=== PATIENT | male | born 1935 | race Caucasian/White ===

== ENCOUNTER 2017-10-05 10:49 | Outpatient (CLI) | payer MEDICARE | END 2017-10-05 10:50 | disposition home or self-care (01) | LOC: BICCT 10:49 | PROVIDERS: ATTEND Internal Medicine Cardiovascular Disease | DX: I71.2 Thoracic aortic aneurysm, without rupture (principal); I25.118 Atherosclerotic heart disease of native coronary artery with other forms of angina pectoris; I48.2 Chronic atrial fibrillation; R91.8 Other nonspecific abnormal finding of lung field | CPT/HCPCS: 71250; 82565 ==

== ENCOUNTER 2017-12-29 12:53 | Inpatient (IN) | payer MEDICARE ==
[2017-12-29 13:41] LABS: #Eosinphils 0.1 thou/uL (0.0-0.7); #Lymphocytes 1.2 thou/uL (1.20-3.40); #Monocytes 0.7 thou/uL (0.11-0.59); #Neutrophils 13.1 thou/uL (1.40-6.50); %Basophils 0.1 % (0.0-1.0); %Eosinophils 0.7 % (0.0-10.0); %Lymphocytes 8.1 % (21.0-51.0); %Monocytes 4.5 % (0.0-10.0); %Neutrophils 86.7 % (42.0-75.0); Hemoglobin 10.9 g/dL (14.0-18.0); Mean Corpuscular HGB CONC 32.6 g/dL (32.0-36.0); Mean Corpuscular Hemoglobin 31.8 pg (27.0-31.0); Mean Corpuscular Volume 97.3 fL (78.0-98.0); Platelet Count 239 thou/uL (130-400); RBC Distribution Width 12.1 % (11.5-14.5); Red Blood Cell (RBC) Count 3.44 mill/uL (4.70-6.10); White Blood Cell (WBC) Count 15.2 thou/uL (4.8-10.8)
[2017-12-29] MEDS ORDERED: cefTRIAXone\\ROCEPHIN 1 GM VIAL ONE ×2 (13:54→14:44)
[2017-12-29] MEDS ORDERED: Acetaminophen 500 MG TAB ONE (13:54)
[2017-12-29 14:02] LABS: ALT (SGPT) 11 U/L (8-55); AST (SGOT) 11 U/L (5-34); Albumin 3.3 g/dL (3.4-4.8); Alkaline Phosphatase 77 U/L (40-150); Anion Gap 15 mmol/L (10-20); BUN (Urea Nitrogen) 33 mg/dL (8.4-25.7); Bilirubin, Total 1.6 mg/dL (0.2-1.2); CK (CPK) 29 U/L (30-200); Calc. Creatinine Clearance 0 mL/min (70-130); Calcium 8.9 mg/dL (7.8-10.44); Carbon Dioxide 23 mmol/L (23-31); Chloride 101 mmol/L (98-107); Estimated GFR-MDRD 36; Globulin 3.5 g/dL (2.4-3.5); Glucose 113 mg/dL (83-110); Potassium 4.8 mmol/L (3.5-5.1); Protein, Total 6.8 g/dL (5.8-8.1); Sodium 134 mmol/L (136-145)
[2017-12-29 14:07] LABS: CKMB 0.4 ng/mL (0-6.6); Troponin I Less than 0.010 ng/mL (< 0.028)
--- NOTE | 2017-12-29 14:14 | RAD ---
CHEST 1 VIEW: Date: 12/29/17 HISTORY: Cough and difficulty breathing. COMPARISON: None. FINDINGS: Evaluation is limited by portable technique. Heart appears to be enlarged and there is atherosclerosi s of the aorta. Questionable pleural and parenchymal changes in the left lung base. There appear to b e multiple pleural based calcifications in the left and right hemithorax. Correlate for previous asbe stos exposure. There is no evidence of pneumothorax or osseous abnormalities. IMPRESSION: 1. Cardiomegaly. 2. Questionable pleural and parenchymal changes left lung base. Better interrogation with a 2 view c hest radiograph is recommended. 3. Multiple pleural based calcifications are suspected. Correlate for previous asbestos exposure. POS: PPP
[2017-12-29 14:30] LABS: Bilirubin Negative (Negative); Blood, Urine Large (Negative); Clarity TURBID (Clear); Glucose, Urine (Dipstick) Negative (Negative); Leukocyte Large (Negative); Nitrite Positive (Negative); Protein, Urine (Dipstick) 100 mg/dL (Neg-Trace); Urobilinogen 0.2 mg/dL (0.2-1.0); pH, Urine 5.5 (5.0-9.0)
[2017-12-29 14:35] LABS: Bacteria/HPF Rare-Few HPF (None Seen); Hyaline Casts/LPF 4-6 HYALINE CAST LPF (0-3 Hyaline); Pathc Cast-AUWi Flag 1.72 (0-2.49); Squamous Epithelial 0-3 HPF (0-3)
[2017-12-29 14:36] LABS: Yeast-AUWi Flag 778.8 (0-25.0)
[2017-12-29 14:43] LABS: RBC/HPF 21-50 HPF (0-3); Yeast-All Forms None Seen HPF (None Seen)
--- NOTE | 2017-12-29 16:46 | HP ---
DATE OF ADMISSION: 12/29/2017 CHIEF COMPLAINT: Altered mental status. HISTORY OF PRESENT ILLNESS: This patient is an 82-year-old male with a history of coronary artery di sease, COPD and hypertension who has been living in [place], but recently moved to [place] to be near family. The patient's son and [id number] are with him. He lives on their property in an adjac ent home. They report that the patient has been in good health until about a week ago when he starte d experiencing some urinary incontinence. Subsequently, the patient was noted this morning to have s ome altered mental status starting soon after he awoke. He was noted to be tachycardic when they att empted to check some blood pressure on him with their blood pressure cuff. They called their PCP, jessica franks is Dr. Cruz and he recommended calling an ambulance and bringing the patient to the hospital. They also noted that the patient was extremely pale when they initially noted to him, but that seems to be improved. REVIEW OF SYSTEMS: Through a 10-system review appears to be negative other than the above mentioned incontinence. They do note that the patient has lost a significant amount of weight over the last ye ar, which has been deliberate. At one point, he was up to 400 pounds. PAST MEDICAL HISTORY: Notable for coronary artery disease with 4 stents. He has an aortic aneurysm, which is followed by Dr. Tarango and appears to be stable over the past year, COPD and hypertensio n. The patient has a history of atrial fibrillation. PAST SURGICAL HISTORY: Bilateral total knee joint replacements and cholecystectomy. The patient rep orts he has an IVC filter. He denies ever having had a blood clot and states he was told he was at h igh risk at one point. FAMILY HISTORY: The patient's mother at 87. Father at 52 of some type of colon rupture. SOCIAL HISTORY: The patient has a remote history of smoking, quit around 1989. No alcohol. He is w idowed. He is a full code and his son be his surrogate decision maker. ALLERGIES: ADHESIVE TAPE. MEDICATIONS: Tamsulosin 0.4 mg 1 p.o. daily, simvastatin 40 mg at bedtime, carvedilol 6.25 mg b.i.d. , pantoprazole 40 mg daily, alprazolam 0.5 mg p.o. b.i.d., losartan 50 mg p.o. daily, aspirin 81 mg d aily, Eliquis 2.5 mg daily, torsemide 20 mg daily, famotidine 20 mg p.o. b.i.d. PHYSICAL EXAMINATION: VITAL SIGNS: Initially, BP is 133/90, heart rate 120, O2 sat 98% on 2 liters, respirations were 22. GENERAL APPEARANCE: Age-appropriate male. He is moderately obese, in no distress. He is awake and alert. He is not fully oriented, but fairly coherent and cooperative. HEENT: PERRL. He is edentulous. No OP lesions. NECK: Supple and symmetric. CARDIOVASCULAR: Faint, irregular with no murmurs. LUNGS: Clear to auscultation bilaterally with good chest wall expansion and air exchange. ABDOMEN: Soft, nontender, nondistended. Positive bowel sounds. No masses, no organomegaly. EXTREMITIES: Reveal chronic stasis dermatitis of the lower extremities with 1+ pretibial pitting becki ma bilaterally. LABORATORY DATA: White count 15.2, hemoglobin 10.9, platelets 239,000. Sodium 134, potassium 4.8, c hloride 101, CO2 23, BUN 33, creatinine 1.80, glucose 113, lactic acid 1.5, total bilirubin 1.6, AST is 11, ALT is 11. CK 29. BNP 695. Albumin 3.3. Urinalysis shows large blood, positive nitrites, l arge leukocyte esterase, 21-50 red cells, too numerous to count white cells. IMAGING: Chest x-ray shows chronic changes of the pleura of the bases. Lungs appear to be stable co mpared to a CT done in September per my read. Monitor revealing atrial fibrillation with rapid ventricula r response. ASSESSMENT AND PLAN: 1. Urinary tract infection. The patient has had vancomycin and Rocephin in the Emergency Department . We will continue with this. 2. Altered mental status, likely metabolic encephalopathy secondary to the urinary tract infection. 3. Atrial fibrillation with rapid ventricular response. The patient is on anticoagulation. His tac hycardia is probably appropriate to the situation with the urinary tract infection. Therefore, I do not believe we need to be overly aggressive in rate control. After I saw the patient, the ER physici an ordered IV Cardizem with a 20 mg bolus to be given after he had fluid resuscitation. Even with th e fluid, the blood pressure dropped into the 90s; however, his heart rate was in 80s. We will contin ue to monitor that and only place him on a drip if it becomes necessary. 4. History of coronary artery disease, stable. Continue with his usual home medications. 5. History of chronic venous stasis of the lower extremities. We will continue with his diuretics o nly after he is more stabilized.
[2017-12-29 17:06] VITALS: BMI 39.2
[2017-12-29] MEDS: Sodium Chloride 0.9% 1,000 ML IV SCH (21:07)
[2017-12-30] MEDS: Sodium Chloride 0.9% 1,000 ML IV SCH (03:37)
[2017-12-30 04:35] LABS: #Lymphocytes 0.8 thou/uL (1.20-3.40); #Monocytes 0.3 thou/uL (0.11-0.59); #Neutrophils 15.3 thou/uL (1.40-6.50); %Eosinophils 0.2 % (0.0-10.0); %Monocytes 1.6 % (0.0-10.0); %Neutrophils 93.2 % (42.0-75.0); Hemoglobin 10.4 g/dL (14.0-18.0); Mean Corpuscular HGB CONC 33.2 g/dL (32.0-36.0); Mean Corpuscular Hemoglobin 32.3 pg (27.0-31.0); Mean Corpuscular Volume 97.4 fL (78.0-98.0); Mean Platelet Volume 8.6 fL (7.4-10.4); Platelet Count 190 thou/uL (130-400); RBC Distribution Width 12.1 % (11.5-14.5); Red Blood Cell (RBC) Count 3.21 mill/uL (4.70-6.10); White Blood Cell (WBC) Count 16.4 thou/uL (4.8-10.8)
[2017-12-30 04:55] LABS: Anion Gap 13 mmol/L (10-20); BUN (Urea Nitrogen) 28 mg/dL (8.4-25.7); Calc. Creatinine Clearance 65 mL/min (70-130); Carbon Dioxide 21 mmol/L (23-31); Chloride 107 mmol/L (98-107); Estimated GFR-MDRD 45; Glucose 177 mg/dL (83-110); Potassium 4.4 mmol/L (3.5-5.1); Sodium 137 mmol/L (136-145)
[2017-12-30] MEDS ORDERED: HYDROcodone/Acetaminophen 10/325 mg Tablet PO PRN (08:44)
[2017-12-30] MEDS ORDERED: Losartan 25 MG TAB PO SCH ×2 (09:30→10:00)
[2017-12-30] MEDS: Apixaban 2.5 MG TAB PO SCH ×2 (09:44→20:33)
[2017-12-30] MEDS: Carvedilol 6.25 MG TAB PO SCH ×2 (09:44→20:32)
[2017-12-30] MEDS: Tamsulosin HCl 0.4 MG CAP PO SCH (09:44)
[2017-12-30] MEDS: Aspirin 81 mg Enteric Coated Tablet PO SCH (09:45)
[2017-12-30] MEDS: ALPRAZolam 0.5 MG TAB PO SCH ×2 (09:45→20:32)
[2017-12-30] MEDS: cefTRIAXone\\ROCEPHIN 1 GM in Sodium Chloride 0.9% 100 ML IVPB SCH (13:51)
--- NOTE | 2017-12-30 14:16 | CON ---
DATE OF CONSULTATION: 12/30/2017 SERVICE: Pulmonary Medicine. REASON FOR CONSULTATION: ICU patient. HISTORY OF PRESENT ILLNESS: The patient is an 82-year-old white male with past medical history significant for asbestos-related lung disease, possible COPD, and obstructive sleep apnea. He has been off of the CPAP for about a year now. He presented to the hospital with a 2-day history of increasing shortness of breath and 1-day history of altered mental status. He was discovered to be in atrial fibrillation with rapid ventricular response. He was placed in the ICU after rate control medications were initiated. He subsequently converted back into a normal rhythm. He was discovered to have a urinary tract infection. He was given some antibiotics and IV fluids overnight. His mentation has improved to baseline based on patient's son's recollection. He currently denies any fevers or chills. He does not have any difficulty breathing, cough, sputum production, shortness of breath, nausea, vomiting, chest discomfort, or palpitations. Otherwise, he is in his usual state of health and has no specific complaints. PAST MEDICAL HISTORY: 1. Coronary artery disease. 2. Hypertension. 3. Dyslipidemia. 4. Chronic obstructive pulmonary disease. 5. Asbestos-related lung disease. 6. Paroxysmal atrial fibrillation. 7. Obstructive sleep apnea. PAST SURGICAL HISTORY: 1. Bilateral total knee replacement. 2. Cholecystectomy. 3. IVC filter placement. FAMILY HISTORY: Noncontributory. SOCIAL HISTORY: He has a remote history of smoking. 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 He denies any alcohol or illicit drug use. He does have exposure to asbestos in his work in the [employer]. He has no exposure to chemicals, dust, tuberculosis, otherwise. ALLERGIES: TAPE. MEDICATIONS: List of his inpatient medications were reviewed and modified. REVIEW OF SYSTEMS: General, head, ears, eyes, nose, throat, cardiovascular, respiratory, GI, , musculoskeletal, neurologic, and skin is negative except as mentioned in the HPI. PHYSICAL EXAMINATION: VITAL SIGNS: Afebrile, pulse 67, blood pressure 127/72, respirations 20, saturation 99% on room air. GENERAL: The patient is awake, alert, in no apparent distress. LUNGS: Excellent air entry. I really do not appreciate a prolonged expiratory phase, but extensive crackles are present in bibasilar regions. HEART: Normal rate, regular. ABDOMEN: Soft, nontender, nondistended. Bowel sounds are positive. MUSCULOSKELETAL: No cyanosis or clubbing. Stasis changes are present in the bilateral lower extremities. He has 1+ edema in the bilateral lower extremities , which is roughly symmetric. NEUROLOGIC: Grossly nonfocal. LABORATORY DATA: WBC 16.4, hemoglobin 10.4, platelets 190,000. Creatinine 1.48. BUN 28. Basic metabolic profile is, otherwise, unremarkable. BNP 694, which is a historical high. Liver function studies are unremarkable. Cardiac enzymes are negative x1. WBC is greater than 50 with positive nitrites and leukocyte esterase. Urine culture is growing a gram-negative boris. Blood cultures are negative x2. IMAGING: Chest x-ray demonstrates bilateral pleural plaques and bilateral pleural parenchymal changes consistent with possible volume overload. There is likely left-sided pleural effusion. Cardiomegaly is present. ASSESSMENT: 1. Acute hypoxic respiratory failure, resolved. 2. Urinary tract infection secondary to gram-negative boris. 3. Atrial fibrillation with rapid ventricular response, returned to sinus rhythm. 4. Obstructive sleep apnea. 5. Asbestos-related lung disease, well established DISCUSSION AND PLAN: The patient has cleared his infectious profile. His blood pressures have firmed up very nicely. We will restart a dose of Lasix to be delivered on a daily basis until he returns to euvolemia. I agree with our empiric antibiotic covering gram-negative urinary tract infection species. IV fluids will be discontinued in their entirety and we will transition the patient to the telemetry unit. Once he gets out of the hospital, I would like for him to follow up with a lung doctor to clarify his underlying lung disease, determine whether or not COPD is a feature as he has previously been diagnosed with this, and also to get him back on noninvasive positive pressure ventilation for his known obstructive sleep apnea (he was on therapy for 10 years, but abandoned it roughly 1 year ago). 70 minutes have been devoted to this patient in various activities. I personally reviewed all imaging studies and laboratory data noted within this document. For fifty percent of this time, I was interacting with the patient at the bedside or coordinating care with the care team. For the remainder of the time I was immediately available to the patient in the hospital unit. ELVER
--- NOTE | 2017-12-30 14:49 | PDOC.PN ---
- Subjective Encounter Start Date: 12/30/17 Encounter Start Time: 08:30 Doing much better. No complaints today. - Objective Resuscitation Status: Resuscitation Status FULL:Full Resuscitation MAR Reviewed: Yes Vital Signs & Weight: Vital Signs (12 hours) Temp Pulse Resp BP BP Pulse Ox 12/30/17 12:00 97.2 F L 87 20 131/79 96 12/30/17 09:44 127/72 12/30/17 07:54 99 12/30/17 07:35 97.6 F 67 20 120/84 99 12/30/17 03:00 97.6 F 75 20 107/72 97 Weight Weight 277 lb 6 oz I&O: 12/29/17 12/30/17 12/31/17 06:59 06:59 06:59 Intake Total 2250 Output Total 800 Balance 1450 Result Diagrams: 12/30/17 03:44 12/30/17 03:44 Phys Exam - Physical Examination Constitutional: NAD Respiratory: no wheezing, no rales, no rhonchi, clear to auscultation bilateral Cardiovascular: RRR, no significant murmur, no rub Gastrointestinal: soft, non-tender, no distention, positive bowel sounds 1+ edema BLE's Neurological: non-focal Psychiatric: normal affect Dx/Plan (1) Sepsis Code(s): A41.9 - SEPSIS, UNSPECIFIED ORGANISM Status: Acute Comment: Improved. (2) UTI (urinary tract infection) Status: Acute Comment: GNR on cx. Continue with broad abx coverage until results of cx complete. Vanc discontinued in light of GNR. (3) Altered mental status Code(s): R41.82 - ALTERED MENTAL STATUS, UNSPECIFIED Status: Acute Comment: Metabolic encephalopathy secondary to sepsis/uti. Improved. At baseline. (4) Atrial fibrillation with RVR Code(s): I48.91 - UNSPECIFIED ATRIAL FIBRILLATION Status: Acute Comment: Rate controlled. Continue with anticoagulation. (5) CAD (coronary artery disease) Code(s): I25.10 - ATHSCL HEART DISEASE OF [place] CORONARY ARTERY W/O ANG PCTRS Status: Acute (6) Venous stasis Code(s): I87.8 - OTHER SPECIFIED DISORDERS OF VEINS Status: Acute Comment: Chronic. He reports a history of an IVC filter. 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 - Plan * Can move to tele floor.
[2017-12-30] MEDS: Simvastatin 40 MG TAB PO SCH (20:32)
[2017-12-30] MEDS: Torsemide 20 MG TAB PO SCH (20:33)
[2017-12-31 04:17] LABS: Anion Gap 15 mmol/L (10-20); BUN (Urea Nitrogen) 32 mg/dL (8.4-25.7); Calc. Creatinine Clearance 75 mL/min (70-130); Calcium 8.1 mg/dL (7.8-10.44); Carbon Dioxide 19 mmol/L (23-31); Chloride 107 mmol/L (98-107); Estimated GFR-MDRD 53; Glucose 131 mg/dL (83-110); Potassium 4.7 mmol/L (3.5-5.1); Sodium 136 mmol/L (136-145)
[2017-12-31 04:48] LABS: Band 3 % (5-11); Hemoglobin 10.6 g/dL (14.0-18.0); Lymphocytes 6 % (21-51); MDiff Complete? YES; Mean Corpuscular HGB CONC 32.4 g/dL (32.0-36.0); Mean Corpuscular Hemoglobin 31.5 pg (27.0-31.0); Mean Corpuscular Volume 97.2 fL (78.0-98.0); Mean Platelet Volume 8.4 fL (7.4-10.4); Monocytes 1 % (0-10); Neutrophil 90 % (42-75); Platelet Count 194 thou/uL (130-400); RBC Distribution Width 12.2 % (11.5-14.5); Red Blood Cell (RBC) Count 3.37 mill/uL (4.70-6.10); White Blood Cell (WBC) Count 18.4 thou/uL (4.8-10.8)
--- NOTE | 2017-12-31 08:36 | PRG ---
DATE OF SERVICE: 12/31/2017 SERVICE: Pulmonary Medicine INTERVAL HISTORY: The patient is doing great from a respiratory standpoint. He is breathing comfortably. He is also resting very well. I woke him up and he was appropriate. He is in no apparent distress. He denies any current chest pain, nausea, vomiting, fevers or chills. PHYSICAL EXAMINATION: VITAL SIGNS: Afebrile, pulse 93, blood pressure 128/77, respirations 18, saturation 98% on room air. GENERAL: The patient is awake, alert, in no apparent distress. LUNGS: Decent air entry. Minimal dependent crackles are present. I do not appreciate a prolonged expiratory phase or wheezing. HEART: Normal rate, regular. ABDOMEN: Soft, nontender, nondistended. Bowel sounds are positive. MUSCULOSKELETAL: No cyanosis or clubbing. There is no pitting in the bilateral lower extremities currently. LABORATORY DATA: WBC 18.4, hemoglobin 10.6, platelets 194,000. Neutrophil count is 90% on top of 3% bands. Creatinine has down trended to 1.30. BUN 32. Basic metabolic profile is otherwise unremarkable. Urinalysis is positive for significant pyuria. E. coli is growing in the urine, which is a pansensitive organism. Blood cultures x2 remain negative to date. ASSESSMENT: 1. Acute hypoxic respiratory failure, resolved. 2. Urinary tract infection secondary to gram negative boris. 3. Severe sepsis, improving. 4. Atrial fibrillation with rapid ventricular response, returned to sinus rhythm. 5. Asbestos related lung disease, well-established. 6. Obstructive sleep apnea. DISCUSSION, AND PLAN: We will increase our mobilization efforts. I will get him into a chair and have physical therapy work with him. He is more hemodynamically stable. As of this point, he can be considered for transition to the telemetry unit. Pulmonary Critical Care will continue to follow along while patient remains in house for now. He will need at least an additional 24 hours in the hospital before being considered for discharge. ELVER
[2017-12-31] MEDS: Carvedilol 6.25 MG TAB PO SCH ×2 (09:32→20:36)
[2017-12-31] MEDS: Aspirin 81 mg Enteric Coated Tablet PO SCH (09:32)
[2017-12-31] MEDS: Losartan 25 MG TAB PO SCH (09:32)
[2017-12-31] MEDS: ALPRAZolam 0.5 MG TAB PO SCH ×2 (09:33→20:36)
[2017-12-31] MEDS: Apixaban 2.5 MG TAB PO SCH ×2 (09:33→20:36)
[2017-12-31] MEDS: Tamsulosin HCl 0.4 MG CAP PO SCH (09:34)
[2017-12-31] MEDS: Torsemide 20 MG TAB PO SCH ×2 (09:34→20:36)
--- NOTE | 2017-12-31 09:59 | PDOC.PN ---
- Subjective Encounter Start Date: 12/31/17 Encounter Start Time: 09:57 Doing great. Much better after getting the Omer out. - Objective Resuscitation Status: Resuscitation Status FULL:Full Resuscitation Vital Signs & Weight: Vital Signs (12 hours) Temp Pulse Resp BP BP Pulse Ox 12/31/17 09:32 131/86 12/31/17 08:00 98 12/31/17 07:39 97.0 F L 93 18 128/77 98 12/31/17 03:40 97.6 F 20 123/78 98 12/31/17 00:00 95 18 123/73 99 Weight Weight 277 lb 6 oz I&O: 12/30/17 12/31/17 01/01/18 06:59 06:59 06:59 Intake Total 2250 410 Output Total 800 1050 Balance 1450 -640 Result Diagrams: 12/31/17 03:45 12/31/17 03:45 Phys Exam - Physical Examination Constitutional: NAD Respiratory: no wheezing, no rales, no rhonchi Cardiovascular: RRR, no significant murmur, no rub Gastrointestinal: soft, non-tender, no distention, positive bowel sounds Musculoskeletal: no edema Psychiatric: normal affect Dx/Plan (1) Sepsis Code(s): A41.9 - SEPSIS, UNSPECIFIED ORGANISM Status: Acute Comment: Improved. (2) UTI (urinary tract infection) Status: Acute Comment: E. coli. Very sensitive. Continue with broad abx coverage until results of cx complete. Vanc discontinued in light of GNR. (3) Altered mental status Code(s): R41.82 - ALTERED MENTAL STATUS, UNSPECIFIED Status: Acute Comment: Metabolic encephalopathy secondary to sepsis/uti. Improved. At baseline. (4) Atrial fibrillation with RVR Code(s): I48.91 - UNSPECIFIED ATRIAL FIBRILLATION Status: Acute Comment: Rate controlled. Continue with anticoagulation. (5) CAD (coronary artery disease) Code(s): I25.10 - ATHSCL HEART DISEASE OF [place] CORONARY ARTERY W/O ANG PCTRS Status: Acute (6) Venous stasis Code(s): I87.8 - OTHER SPECIFIED DISORDERS OF VEINS Status: Acute Comment: Chronic. He reports a history of an IVC filter. 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 - Plan * Ambulate. * Monitor voiding post removal of the Omer. * Move to Tele.
[2017-12-31] MEDS: cefTRIAXone\\ROCEPHIN 1 GM in Sodium Chloride 0.9% 100 ML IVPB SCH (13:49)
--- NOTE | 2017-12-31 13:57 | PQF ---
DATE: 12-31-17 ATTN : DR. DELFIN ZABALA Please exercise your independent, professional judgment in responding to the clarification form. Clinical indicators are provided on the bottom of this form for your review Please check appropriate box(es): [ x] Sepsis due to: ( UTI, etc.) [ ] Severe sepsis with acute organ dysfunction of: (Examples: respiratory failure, encephalopathy, other) [ ] Other diagnosis [ ] Unable to determine In addition, please specify: Present on Admission (POA): [ x] Yes [ ] No [ ] Unable to determine For continuity of documentation, please document condition throughout progress notes and discharge summary. Thank You. CLINICAL INDICATORS - SIGNS / SYMPTOMS / LABS ER: CONFUSION, FEVER, HX OF UTI'S H&P: AMS, LIKELY METABOLIC ENCEPHALOPATHY 2/[address] ZABALA 12-30-17: ACUTE SEPSIS IMPROVED CONSULT NOTE DR. BARLOW 12-31-17: SEVERE SEPSIS, IMPROVING TEMP: ER: 102.3, 102.4 BP: ER: 99/71, 96/52 PULSE: ER: 133, 120, 113 WBC: 12-29-17: 15.2 12-30-17: 16.4 12-31-17: 18.4 RISK FACTORS: H&P: AMS, LIKELY METABOLIC ENCEPHALOPATHY 2/2 UTI TREATMENTS: MAR: 12-30-17: ROCEPHIN IV, IVF (This form is maintained as a part of the permanent medical record) 2014 [employer] All Rights Reserved MTDD
[2017-12-31] MEDS: Simvastatin 40 MG TAB PO SCH (20:36)
[2018-01-01 05:03] LABS: #Basophils 0.1 thou/uL (0.0-0.2); #Eosinphils 0.5 thou/uL (0.0-0.7); #Monocytes 0.7 thou/uL (0.11-0.59); #Neutrophils 10.1 thou/uL (1.40-6.50); %Basophils 0.4 % (0.0-1.0); %Eosinophils 4.2 % (0.0-10.0); %Lymphocytes 8.1 % (21.0-51.0); %Monocytes 5.7 % (0.0-10.0); %Neutrophils 81.6 % (42.0-75.0); Mean Corpuscular HGB CONC 31.8 g/dL (32.0-36.0); Mean Corpuscular Volume 97.7 fL (78.0-98.0); Platelet Count 207 thou/uL (130-400); RBC Distribution Width 12.2 % (11.5-14.5); Red Blood Cell (RBC) Count 3.56 mill/uL (4.70-6.10); White Blood Cell (WBC) Count 12.4 thou/uL (4.8-10.8)
[2018-01-01 05:22] LABS: Anion Gap 14 mmol/L (10-20); BUN (Urea Nitrogen) 33 mg/dL (8.4-25.7); Calc. Creatinine Clearance 68 mL/min (70-130); Calcium 8.3 mg/dL (7.8-10.44); Carbon Dioxide 26 mmol/L (23-31); Chloride 102 mmol/L (98-107); Estimated GFR-MDRD 47; Glucose 98 mg/dL (83-110); Sodium 138 mmol/L (136-145)
[2018-01-01] MEDS: Losartan 25 MG TAB PO SCH (08:29)
[2018-01-01] MEDS: Tamsulosin HCl 0.4 MG CAP PO SCH ×2 (08:29→20:34)
[2018-01-01] MEDS: Torsemide 20 MG TAB PO SCH ×2 (08:29→20:34)
[2018-01-01] MEDS: Carvedilol 6.25 MG TAB PO SCH ×2 (08:29→20:33)
[2018-01-01] MEDS: ALPRAZolam 0.5 MG TAB PO SCH ×2 (08:29→20:33)
[2018-01-01] MEDS: Apixaban 2.5 MG TAB PO SCH ×2 (08:29→20:33)
[2018-01-01] MEDS: Aspirin 81 mg Enteric Coated Tablet PO SCH (08:29)
--- NOTE | 2018-01-01 13:20 | ULT ---
TESTICULAR ULTRASOUND: 01/01/2018 HISTORY: Testicular swelling. The patient presents with left testicular pain and swelling since removal of Fo ming catheter. FINDINGS: The right testicle measures 3.4 cm x 2.9 cm x 2.5 cm, with the left testicle measuring 2.9 cm x 2.2 c m x 2.2 cm. The testicle demonstrate an overall normal sonographic appearance without evidence of a testicular mass. Doppler evaluation of each testicle with spectral analysis and color-flow evaluatio n demonstrate arterial flow in each testicle. However, there is increased vascular flow present in t he left testicle, as well as involving the left epididymis. There is a hypoechoic cystic structure seen within the left epididymis, which measures 0.6 cm, and ma y represent a small spermatocele versus an epididymal cyst. There does appear to be a closely adjace nt punctate microcalcification. There is a left hydrocele with multiple septations, suggesting a complicated hydrocele on the left. There is also a right hydrocele without internal septations. There is a hypoechoic structure seen within the right epididymis, which measures 1.5 cm in maximal di mensions, which may represent a small spermatocele versus an epididymal cyst. IMPRESSION: 1. Evidence for left-sided epididymal orchitis with a complicated left-sided hydrocele. 2. Normal appearing right testicle. No testicular mass is seen bilaterally, and there is arterial f low seen in each testicle. There is asymmetric increased flow within the left testicle, compared to the right. 3. Small spermatoceles versus epididymal cysts. 4. Right hydrocele without internal septations. POS: NIELS
--- NOTE | 2018-01-01 13:56 | PDOC.PN ---
- Subjective Encounter Start Date: 01/01/18 Encounter Start Time: 11:20 Doing very well overall. He did develop some left testicular discomfort after the Omer catheter was removed. Indicated it was normal prior to that time. - Objective Resuscitation Status: Resuscitation Status FULL:Full Resuscitation Vital Signs & Weight: Vital Signs (12 hours) Temp Pulse Resp BP BP Pulse Ox 01/01/18 11:57 98.6 F 108 H 18 139/85 96 01/01/18 08:29 136/84 01/01/18 08:20 98 01/01/18 07:47 87 16 129/69 97 01/01/18 04:00 97.0 F L 92 18 147/76 H 95 Weight Weight 271 lb 6 oz I&O: 12/31/17 01/01/18 01/02/18 06:59 06:59 06:59 Intake Total 410 360 Output Total 1050 3725 Balance -818 -4324 Result Diagrams: 01/01/18 04:15 01/01/18 04:15 Phys Exam - Physical Examination Constitutional: NAD Respiratory: no wheezing, no rales, no rhonchi, clear to auscultation bilateral Diminished Cardiovascular: RRR, no significant murmur, no rub Gastrointestinal: soft, non-tender, no distention, positive bowel sounds Musculoskeletal: no edema (Left epididymal enlargement, TTP. ) Dx/Plan (1) Sepsis Code(s): A41.9 - SEPSIS, UNSPECIFIED ORGANISM Status: Acute Comment: Secondary to the E. coli UTI. Improved. (2) UTI (urinary tract infection) Status: Acute Comment: E. coli. Very sensitive. Continue with broad abx coverage until results of cx complete. Vanc discontinued in light of GNR. (3) Altered mental status Code(s): R41.82 - ALTERED MENTAL STATUS, UNSPECIFIED Status: Resolved Comment: Metabolic encephalopathy secondary to sepsis/uti. Improved. At baseline. (4) Atrial fibrillation with RVR Code(s): I48.91 - UNSPECIFIED ATRIAL FIBRILLATION Status: Acute Comment: Rate controlled. Continue with anticoagulation. (5) CAD (coronary artery disease) Code(s): I25.10 - ATHSCL HEART DISEASE OF [place] CORONARY ARTERY W/O ANG PCTRS Status: Acute (6) Venous stasis Code(s): I87.8 - OTHER SPECIFIED DISORDERS OF VEINS Status: Acute Comment: Chronic. He reports a history of an IVC filter. 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 (8) Epididymitis Code(s): N45.1 - EPIDIDYMITIS Status: Acute Comment: US pending. - Plan * Stable from the UTI and could consider transition to oral abx and discharge. Await workup of the epididymal pain/swelling.
--- NOTE | 2018-01-01 14:00 | PRG ---
DATE OF SERVICE: 01/01/2018 SERVICE: Pulmonary Medicine. INTERVAL HISTORY: The patient is doing great from a respiratory standpoint. He denies any chest gerber n, fevers, or chills. Otherwise, he is in his usual state of health. He has complaints today of inc reasing left testicular discomfort. Otherwise, nurse reports no overnight events. PHYSICAL EXAMINATION: VITAL SIGNS: Afebrile, pulse 108, blood pressure 139/85, respirations 18, saturation 96% on room air . GENERAL: The patient is awake, alert, in no apparent distress. LUNGS: Decent air entry. There is a slightly prolonged expiratory phase. Crackles are present. HEART: Normal rate, regular. ABDOMEN: Soft, nontender, nondistended. Bowel sounds are positive. MUSCULOSKELETAL: No cyanosis or clubbing. There is 1+ pitting in the bilateral lower extremities. NEUROLOGIC: Grossly nonfocal. : No Omer catheter is in place now. The left testicle is swollen and boggy compared to the right . LABORATORY DATA: WBC 12.4, hemoglobin 11.0, platelets 207,000. Creatinine 1.44. Basic metabolic pr ofile is, otherwise, unremarkable. Pansensitive E. coli is growing in the urine. Blood cultures x2 are, otherwise, unremarkable. IMAGING: Testicular ultrasound demonstrates evidence of left-sided epididymo-orchitis with complicat ed left-sided hydrocele. Normal-appearing right testicle is present. No testicular mass is identifi ed. Each testicle has arterial flow identified. Asymmetric increased flow is present on the left co mpared to the right. ASSESSMENT: 1. Acute hypoxic respiratory failure, resolved. 2. Urinary tract infection, secondary to gram-negative boris. 3. Orchitis. 4. Severe sepsis, resolving. 5. Atrial fibrillation with rapid ventricular response, returned to sinus rhythm. 6. Asbestos-related lung disease. 7. Obstructive sleep apnea. DISCUSSION AND PLAN: Once again, the patient is stable for transition to the floor. We will have Ur ology comment on the abnormal testicular ultrasound. I will have him return to clinic to see me in t he outpatient setting, so that we can arrange for a repeat polysomnogram. That being said, when he l eaves the [facility], he will have no further requirements for inpatient Pulmonary opinion, and I will sign off. Please call with additional questions or concerns moving forward.
[2018-01-01] MEDS: cefTRIAXone\\ROCEPHIN 1 GM in Sodium Chloride 0.9% 100 ML IVPB SCH (14:39)
[2018-01-01] MEDS ORDERED: HumaLOG 300 UNITS/3 ML VIAL SC PRN (17:20)
[2018-01-01] MEDS ORDERED: Dextrose 50% Abboject 50 ML SYRINGE SLOW IVP PRN (17:20)
[2018-01-01] MEDS ORDERED: Dextrose 5% in Water 1,000 ML IV PRN (17:20)
[2018-01-01] MEDS: Simvastatin 40 MG TAB PO SCH (20:33)
--- NOTE | 2018-01-01 22:50 | CON ---
DATE OF CONSULTATION: 01/01/2018 REFERRING PHYSICIAN: Dr. Villanueva regarding epididymal orchitis, history of UTI. PRIMARY CARE PHYSICIAN: Camilo Cruz M.D. HISTORY OF PRESENT ILLNESS: Mr. Reagan is a pleasant 81-year-old gentleman, disabled, who is currently admitted as he presented with UTI symptoms of slow stream, hesitancy 4-5 days presenting to the hospital. He was provided vancomycin and Rocephin in the Emergency Room. Over the last few days, he has had slow stream, hesitancy, denies gross hematuria. He states that he saw urologist in [place] few years back and has been on Flomax for few years. He denies personal or family history of prostate cancer, prior surgical intervention for urologic issues. He had an indwelling Omer catheter in house , patient is being diuresed by primary service with torsemide 20 mg one p.o. b.i.d. As such, he has put out approximately 3700 mL of urine. Omer catheter was removed 2 days ago and he has been urinating into a urinal uneventfully. Currently, he states that his flow is back to his baseline, adequate, denies sensation of incomplete void. Does have urinary frequency as he is currently being diuresed. He states that his dysuria has resolved. PAST MEDICAL HISTORY: Positive for coronary artery disease, status post stent, aortic aneurysm, Dr. Tarango; COPD; hypertension; history of atrial fibrillation; diabetes. PAST SURGICAL HISTORY: Bilateral total knee replacement, cholecystectomy, questionable IVC filter; however, his primary care records do not reflect that he had an IVC filter, status post cardiac stent, bilateral cataract surgery, gallbladder, 1976. REVIEW OF SYSTEMS: Ten point review of systems as above, otherwise noncontributory. FAMILY HISTORY: He lives alone, son is close by, . SOCIAL HISTORY: Remote history of tobacco, quit in 1989, full code. Son is the surrogate decision maker. Phone number [phone]. ALLERGIES: Allergic to ADHESIVE TAPE. CURRENT MEDICATIONS: [place] 10/325, Xanax, Eliquis, Ecotrin, baby aspirin, Coreg , Rocephin, losartan, Protonix, Zocor, Flomax 1 p.o. daily, torsemide 20 mg 1 p.o. b.i.d. PHYSICAL EXAMINATION: VITAL SIGNS: Stable. He is afebrile at 98, 108, 18, 96, 139/85. I's and O's 3610 and 3725 out. GENERAL: The patient appears to be in no acute distress, pleasant male. HEENT: Grossly unremarkable. HEART: Regular rate. LUNGS: Clear. ABDOMEN: Morbidly obese, protuberant, no rigidity, no rebound. GENITOURINARY: Uncircumcised, there is some prepucial edema, which the foreskin retracts without significant issues. Meatus is grossly unremarkable. Testes are descended. The right hemiscrotum is grossly unremarkable. There is mild left scrotal edema, left testis is firm. No gross fluctuance. Findings consistent with left epididymal orchitis with small hydrocele. The hydrocele component is quite small on physical exam. GENITOURINARY: Demonstrates PARADISE of approximately 30-40 grams with no induration. There is a tiny punctate nodularity at the mid prostate. EXTREMITIES: Venous stasis changes. LABORATORY DATA: White count is 12, hemoglobin 11, platelet 207, creatinine is 1.4. Admitting creatinine 1.8. His prior creatinine in 08/2017 is 2.1. Urinalysis demonstrates 100 protein, positive nitrites, 20-50 RBCs, greater than 50 WBCs. Negative epithelial rare bacteria, large leukocyte E. coli pansensitive. Blood cultures negative. Scrotal ultrasound demonstrates left epididymal orchitis with complicated left hydrocele due to multiple septations, which I reviewed myself. There is no gross evidence of abscess. There is an associated 0.6 cm small epididymal cyst with punctate microcalcification. Right small hydrocele without septation. Bilateral testicular flow is noted. Asymmetric flow to the left with increased flow on the left consistent with epididymal orchitis. IMPRESSION AND PLAN: 1. Mr. Reagan is an 82-year-old male with history of chronic obstructive pulmonary disease. 2. Atrial fibrillation on Eliquis. Currently, admitted due to urinary tract infection with history of mental status changes. The patient appears to be his baseline, cooperative to physical exam, coherent. 3. History of benign prostatic hypertrophy. 4. Escherichia coli urinary tract infection. I did have the nursing staff check a postvoid residual on him, the first postvoid residual somewhat artifactual as it was 45 minutes after his initial void of 525 mL, PVR 425. A repeat bladder scan with which he voided 375, PVR 129 mL. I will continue to monitor his voiding status with postvoid residual bladder scan every 6 hours. He is to be straight cathed if greater than 300 mL of post-void residual. We will increase his Flomax to b.i.d. I would prefer him without indwelling Omer catheter as he can exacerbate further UTI/orchitis. 5. Small punctate prostatic nodule. Discussed with patient regarding AUA guidelines given his age and punctate nodularity, recommend observation given his advanced age and comorbidities. will follow along with you on this admission. ELVER
[2018-01-02 05:17] LABS: #Eosinphils 0.8 thou/uL (0.0-0.7); #Lymphocytes 1.3 thou/uL (1.20-3.40); #Monocytes 0.7 thou/uL (0.11-0.59); #Neutrophils 6.9 thou/uL (1.40-6.50); %Eosinophils 8.3 % (0.0-10.0); %Monocytes 7.2 % (0.0-10.0); %Neutrophils 71.4 % (42.0-75.0); Hemoglobin 10.8 g/dL (14.0-18.0); Mean Corpuscular HGB CONC 30.9 g/dL (32.0-36.0); Mean Corpuscular Hemoglobin 30.1 pg (27.0-31.0); Mean Corpuscular Volume 97.3 fL (78.0-98.0); Mean Platelet Volume 8.5 fL (7.4-10.4); Platelet Count 224 thou/uL (130-400); RBC Distribution Width 12.2 % (11.5-14.5); Red Blood Cell (RBC) Count 3.59 mill/uL (4.70-6.10); White Blood Cell (WBC) Count 9.7 thou/uL (4.8-10.8)
[2018-01-02 05:29] LABS: Anion Gap 11 mmol/L (10-20); BUN (Urea Nitrogen) 32 mg/dL (8.4-25.7); Calc. Creatinine Clearance 72 mL/min (70-130); Calcium 8.4 mg/dL (7.8-10.44); Carbon Dioxide 31 mmol/L (23-31); Chloride 99 mmol/L (98-107); Estimated GFR-MDRD 51; Glucose 100 mg/dL (83-110); Potassium 3.9 mmol/L (3.5-5.1); Sodium 137 mmol/L (136-145)
[2018-01-02] MEDS: Tamsulosin HCl 0.4 MG CAP PO SCH (08:49)
[2018-01-02] MEDS: Aspirin 81 mg Enteric Coated Tablet PO SCH (08:49)
[2018-01-02] MEDS: ALPRAZolam 0.5 MG TAB PO SCH (08:49)
[2018-01-02] MEDS: Torsemide 20 MG TAB PO SCH (08:49)
[2018-01-02] MEDS: Losartan 25 MG TAB PO SCH (08:49)
[2018-01-02] MEDS: Carvedilol 6.25 MG TAB PO SCH (08:49)
[2018-01-02] MEDS: Apixaban 2.5 MG TAB PO SCH (08:50)
--- NOTE | 2018-01-02 09:43 | PRG ---
DATE OF SERVICE: 01/02/2018 SUBJECTIVE: The patient is doing better, he has been urinating without symptoms of obstruction. PHYSICAL EXAMINATION: VITAL SIGNS: Stable, afebrile. Postvoid residual reviewed. Largest postvoid residual is 114 to 121, subsequently 98-96 which did not warrant clean intermittent catheterization. ABDOMEN: Soft, obese, protuberant. GENITOURINARY: Left testis is firm, as previous consistent with epididymal orchitis. No evidence of fluctuance, some reactive edema of the left hemiscrotum and preputial foreskin. No fluctuance, crepitus appreciated. LABORATORY DATA: White blood cell count is 9, hemoglobin 10.8, platelets 224, BUN 32, creatinine is 1.3. His previous urine culture demonstrating E. coli. Blood culture negative. Sensitivity reviewed and the E. coli which is pansensitive. IMPRESSION AND PLAN: 1. Mr. Reagan is an 82-year-old male with history of Escherichia coli urinary tract infection, left orchitis. 2. History of small left complex hydrocele due to septation. 3. History of benign prostatic hypertrophy, mild incomplete void with aggressive diuresis. His PVR is stable, does not warrant CIC. We will continue to monitor his postvoid residual, his Flomax was increased to b.i.d. which should be continued as an outpatient. 4. Tiny prostatic nodule. We will observe given his advanced age and comorbidities. No significant induration noted. 5. History of diabetes. Strict control of diabetes is advised. From a urologic perspective, if he is medically stable he can be discharged. I would recommend the patient be discharged with Flomax 0.4 mg one p.o. b.i.d., for left epididymal orchitis UTI, I do recommend 21 days of ciprofloxacin 500 mg 1 p.o. b.i.d. When the patient ready for discharge, will provide followup appointment. [facility]OSPITALRenita
[2018-01-02] MEDS: cefTRIAXone\\ROCEPHIN 1 GM in Sodium Chloride 0.9% 100 ML IVPB SCH (15:02)
[2018-01-02 16:31] VITALS: BP 133/92; TEMP 98.1
--- NOTE | 2018-01-03 12:34 | DIS ---
DATE OF ADMISSION: 12/29/2017 DATE OF DISCHARGE: 01/02/2018 DISCHARGE DIAGNOSES: 1. Sepsis. 2. Urinary tract infection. 3. Altered mental status. 4. Atrial fibrillation with rapid ventricular response. 5. History of coronary artery disease. 6. History of chronic venous stasis of the lower extremities. 7. 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 8. Epididymitis. HISTORY: This patient is an 82-year-old male, who presented via the emergency department. The patie zunilda was reported to have some altered mental status. He had recently moved from [place] to [facility] to be near family. The patient was in good health until about a week prior when he started experie ncing some urinary incontinence and altered mental status on the day of admission soon after he awoke . He was also reportedly very pale by the family members. While in the emergency department, the shahla monahan had a temperature of 102.3, his blood pressure was as low as 96/52, and his heart rate was in t he 130s. His workup was notable for a white blood cell count of 15.2, BUN was 32, creatinine 1.3, an d his urinalysis showed greater than 50 white blood cells with positive leukocyte esterase and nitrit es. His chest x-ray was clear. HOSPITAL COURSE: The patient was admitted to the hospital in the intermediate care unit given his ta chycardia and borderline blood pressures. The patient was in atrial fibrillation and he was tachycar dic. He was given a dose of Cardizem, which made his blood pressure go somewhat lower, although it d id lower the heart rate. He was given fluid resuscitation and Omer catheter was placed. Patient di d well through that and he was started on broad-spectrum antibiotics for sepsis and urinary tract inf ection. By the following day, his blood pressure was stable. His heart rate was improved. He felt well and was downgraded to a floor bed status. He had gram-negative rods growing in his urine at olive t point. His vancomycin was discontinued. The Omer catheter was discontinued, and subsequent to th at, the patient reported some pain in his left scrotal area. Exam revealed some tenderness to palpat ion and swelling in the epididymis. Urology was consulted. There was some concern about the possibi lity of the patient not having a complete bladder emptying and postvoid residuals were monitored. Th ere was no substantial urinary retention noted, and the patient was, ultimately, felt to be stable fo r discharge once his vital signs were stable. His intake was adequate. He was voiding well without the Omer catheter and his urine culture had grown E. coli with no resistant pattern. Given his atri al fibrillation issues, a repeat echocardiogram had been obtained as well that showed an ejection fra ction of 40%-45% with some suggestion of diastolic dysfunction with moderate MR, AR, and TR noted. PHYSICAL EXAMINATION: VITAL SIGNS: On the day of discharge, temperature 98.1, pulse 94, respirations 14, O2 sat 98% on sujata m air, BP 133/92. GENERAL APPEARANCE: The patient was awake and alert, very pleasant and cooperative. HEART: Irregular with no murmurs. LUNGS: Were clear bilaterally. ABDOMEN: Soft, nontender. EXAM: Revealed some persistent tenderness in the left epididymal area. EXTREMITIES: Had persistent evidence of chronic stasis dermatitis. LABORATORY DATA: White blood cell count was down to 9.7. BUN was 32 and creatinine stable at 133. DISPOSITION: The patient is discharged to home. His activity level is as tolerated and he will carlos in on a diabetic diet. DISCHARGE MEDICATIONS: He will be on Coreg 12.5 mg p.o. b.i.d., which is an increase over his baseli ne. Cipro 500 mg b.i.d., Flomax 0.4 mg b.i.d. per Urology. Pantoprazole 40 mg every day, aspirin 81 mg every day, losartan 50 mg every day, famotidine 20 mg b.i.d., Eliquis 2.5 mg b.i.d., torsemide 20 mg b.i.d., Xanax 0.5 mg b.i.d. p.r.n., Zocor 40 mg b.i.d., Guy p.r.n. We will discontinue the low er doses of Coreg and Flomax. He is to follow up with Dr. Cruz and his PCP in [place] as well as Dr. Ramirez. He also has a followup with Dr. Tarango on 01/08/2018.
--- NOTE | 2018-01-05 18:23 | EKG ---
Test Reason : TACHYCARDIA Blood Pressure : / mmHG Vent. Rate : 136 BPM Atrial Rate : 138 BPM P-R Int : 000 ms QRS Dur : 116 ms QT Int : 276 ms P-R-T Axes : 000 -47 105 degrees QTc Int : 415 ms Atrial fibrillation with rapid ventricular response Left axis deviation Septal infarct , age undetermined Abnormal ECG Left ventricular hypertrophy Confirmed by SWETA WADE, LISA Leong ([id number]), make up editor ADIS REMY ([id number]) on 01/05/2018 6:23:27 PM Referred By: Confirmed By:LISA SOL MD
== END 2018-01-02 17:31 | disposition home health service (06) | DRG 871 ==
LOC: ERS 12:53 → IMCU/EMU 14:29 → 2NO 01-01 16:58
PROVIDERS: ADMIT Internal Medicine; ATTEND Internal Medicine
DX: A41.51 Sepsis due to Escherichia coli [E. coli] (principal); G93.41 Metabolic encephalopathy; J96.01 Acute respiratory failure with hypoxia; N39.0 Urinary tract infection, site not specified; R65.20 Severe sepsis without septic shock; I25.10 Atherosclerotic heart disease of native coronary artery without angina pectoris; J44.9 Chronic obstructive pulmonary disease, unspecified; I10 Essential (primary) hypertension; R32 Unspecified urinary incontinence; I87.8 Other specified disorders of veins; J92.0 Pleural plaque with presence of asbestos; Z95.5 Presence of coronary angioplasty implant and graft; I71.9 Aortic aneurysm of unspecified site, without rupture; Z96.653 Presence of artificial knee joint, bilateral; Z87.891 Personal history of nicotine dependence; Z91.048 Other nonmedicinal substance allergy status; Z79.899 Other long term (current) drug therapy; Z79.01 Long term (current) use of anticoagulants; Z79.82 Long term (current) use of aspirin; E66.9 Obesity, unspecified; Z68.39 Body mass index [BMI] 39.0-39.9, adult; N40.0 Benign prostatic hyperplasia without lower urinary tract symptoms; E11.9 Type 2 diabetes mellitus without complications; G47.33 Obstructive sleep apnea (adult) (pediatric); N40.2 Nodular prostate without lower urinary tract symptoms
CPT/HCPCS: 36415; 36416; 51702; 71045; 76870; 80048; 80053; 81003; 81015; 82553; 83605; 83880; 84484; 85025; 87040; 87077; 87086; 87186; 93005; 93306; 93976; 94760; 96365; 96375; A4216; G8978-GP-CL; G8979-GP-CJ; J0696; J3370; J7050

== ENCOUNTER 2018-05-02 08:21 | Outpatient (CLI) | payer MEDICARE | END 2018-05-02 08:22 | disposition home or self-care (01) | LOC: CP 08:21 | PROVIDERS: ATTEND Internal Medicine | DX: J44.9 Chronic obstructive pulmonary disease, unspecified (principal); J61 Pneumoconiosis due to asbestos and other mineral fibers | CPT/HCPCS: 94060; 94727; 94729 ==

== ENCOUNTER 2019-04-26 19:30 | Outpatient (CLI) | payer MEDICARE | END 2019-04-26 19:31 | disposition home or self-care (01) | LOC: SLEEPLAB 19:30 | PROVIDERS: ATTEND Internal Medicine | DX: G47.33 Obstructive sleep apnea (adult) (pediatric) (principal); R53.83 Other fatigue; R51 Headache; E66.9 Obesity, unspecified; K21.9 Gastro-esophageal reflux disease without esophagitis; I48.0 Paroxysmal atrial fibrillation; I50.9 Heart failure, unspecified; R35.1 Nocturia; R09.89 Other specified symptoms and signs involving the circulatory and respiratory systems; R09.02 Hypoxemia | CPT/HCPCS: 95810 ==